=== PATIENT | male | born 1980 | race Caucasian/White ===

== ENCOUNTER 2024-08-14 18:55 | Observation (INO) | payer OTHER ==
--- OUTSIDE RECORDS SUMMARY | 2024-08-14 18:59 | XMS REPORT | Continuity of Care Document ---
Author Name Unknown Address [address] [place] [address]. [address] [place], [place] [id number] [place], [place] [address] [address] [facility] [address] [place] [address] Care Team Providers Care Accounts Adjustable Clerk Name Role Phone FREDIS PRICE Attending Clinician Unavailable ELDER GARCIA Attending Clinician Unavailable SAGRARIO COPE Attending Clinician Unavailable REA VEGA Attending Clinician Unavailable HERI RACHEL Attending Clinician Unavailable [id number] Attending Clinician Unavailable MELIA PETERS Attending Clinician Unavailable Only, Adc Test Attending Clinician Unavailable Tao Rodriguez MD Attending Clinician [phone] TAO RODRIGUEZ Attending Clinician Unavailabl e Doctor Unassigned, [place] Attending Clinician U navailable Payers Payer Name Policy Type Policy Number Effective Date Expirati on Date Source [facility] SARAH RAMAN COPAY FOCUS 9 [id number] 2024 00:00:00 PK GRANTIVELISSEBridget FROM [facility] [id number] 2019 00:00:00 Problems Condition Name Condition Details Condition Category Status Onset Date Resolution Date Last Treatment Date Treating Clinician Comments Source 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) Disease Active 2016-03 00:00: 00 Bridgette Harmon 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 2016-03 00:00: 00 Bridgette puri EDUARDO (obstructi ve sleep apnea) EDUARDO (obstructi ve sleep apnea) Disease Active 2016-03 00:00: 00 Bridgette puri Chronic left shoulder pain Chronic left shoulder pain Disease Active 2016-03 00:00: 00 Bridgette puri Obesity (BMI 30.0-34.9) Obesity (BMI 30.0-34.9) Disease Active Bridgette puri Allergies, Adverse Reactions, Alerts Allergy Name Allergy Type Status Severity Reaction(s) Onset Date Inactive Date Treating Clinician Comments Source NO KNOWN ALLERGIE S Drug Class Active [facility] Social History Social Habit Start Date Stop Date Quantity Comments Source Sexual orientation Reji uri [place] - External History of tobacco use Cigarette Smoker Bridgette Harmon External Tobacco use and exposure 2023-09-01 00:00:00 2023-09-01 00:00:00 Smokeless tobacco non-user Bridgette Hills - External Alcoholic beverage intake 2023-09-01 00:00:00 2023-09-01 00:00:00 Current drinker of alcohol (finding) Bridgette [place] - External History of Social function 2023-09-01 00:00:00 2023-09-01 00:00:00 Bridgette Hills - External Alcohol Comment 2017-03-03 00:00:00 2017-03-03 00:00:00 Rarely Bridgette [place] - External Sex assigned at 1980 00:00:00 1980 00:00:00 Bridgette Hills - External Smoking Status Start Date Stop Date Source Unknown if ever smoked [facility] Occasional tobacco smoker 2023-09-01 00:00:00 Bridgette Pastrana Medications Ordered Medication Name Filled Medication Name Start Date Stop Date Current Medication? Ordering Clinician Indication Dosage Frequency Signature (SIG) Comments Components Source Sildenafil Citrate 25 MG oral Tablet 08-31 10:48: 36 08-31 00:00 :00 No 25mg QD Take 1 tablet (25 mg total) by mouth daily as needed for erectile dysfunctio nPatricia puri Pantoprazol e Sodium 40 MG oral Pack 08-31 10:48: 36 08-31 00:00 :00 No 1{packe t} Take 1 packet by mouth daily. Bridgette puri Dapaglifloz in Propanediol (Farxiga) 10 MG oral Tablet 08-31 10:48: 36 08-31 00:00 :00 No 1{tbl} Take 1 tablet by mouth daily. Bridgette puri Diclofenac Sodium 75 MG oral Tablet Delayed Response 08-31 10:48: 36 08-31 00:00 :00 No 75mg Take 1 tablet (75 mg total) by mouth 2 times daily. Bridgette puri metFORMIN HCl ER 500 MG/5ML oral Suspension Reconstitut ed ER 08-31 10:48: 36 08-31 00:00 :00 No 1{tbl} Take 1 tablet by mouth daily. Bridgette puri hydroCHLORO thiazide 25 MG oral Tablet 08-31 10:48: 36 08-31 00:00 :00 No 25mg Take 1 tablet (25 mg total) by mouth daily. Bridgette puri Fenofibrate 160 MG oral Tablet 08-31 10:48: 36 08-31 00:00 :00 No 160mg Take 1 tablet (160 mg total) by mouth daily. Bridgette puri Albuterol HFA 108 (90 Base) MCG/ACT IN AERS 08-31 10:48: 36 08-31 00:00 :00 No 2{puff} Q.25D Inhale 2 puffs into the lungs every 6 hours as needed for wheezing. Bridgette puri Ergocalcife rol (VITAMIN D2 OR) 08-31 10:22: 45 Yes [id number] Take by mouth. Bridgette puri Dapaglifloz in Propanediol (Farxiga) 10 MG oral Tablet 08-31 00:00: 00 Yes [id number] 1{tbl} Take 1 tablet by mouth daily. Bridgette puri Albuterol HFA 108 (90 Base) MCG/ACT IN AERS 08-31 00:00: 00 Yes [id number] 2{puff} Q.25D Inhale 2 puffs into the lungs every 6 hours as needed for wheezing. Bridgette puri Metoprolol Tartrate (LOPRESSOR) 25 MG oral Tablet 08-31 00:00: 00 Yes [id number] 25mg Take 1 tablet (25 mg total) by mouth 2 times daily. Bridgette puri FLUTICASONE PROPIONATE, NASAL, (Flonase) 50 MCG/ACT nasal Suspension 08-31 00:00: 00 Yes [id number] 100ug Use 2 sprays (100 mcg total) in each nostril daily. Bridgette puri Fenofibrate 160 MG oral Tablet 08-31 00:00: 00 11-30 04:59 :00 No [id number] 160mg Take 1 tablet (160 mg total) by mouth daily. Bridgette puri hydroCHLORO thiazide 25 MG oral Tablet 08-31 00:00: 00 11-30 04:59 :00 No [id number] 25mg Take 1 tablet (25 mg total) by mouth daily. Bridgette puri metFORMIN HCl ER 500 MG/5ML oral Suspension Reconstitut ed ER 08-31 00:00: 00 11-30 04:59 :00 No [id number] 1{tbl} Take 1 tablet by mouth daily. Bridgette puri Pantoprazol e Sodium 40 MG oral Pack 08-31 00:00: 00 11-30 04:59 :00 No [id number] 1{packe t} Take 1 packet by mouth daily. Bridgette puri Sildenafil Citrate 25 MG oral Tablet 08-31 00:00: 00 11-30 04:59 :00 No [id number] 25mg QD Take 1 tablet (25 mg total) by mouth daily as needed for erectile dysfunctio n. Bridgette puri Gabapentin 100 MG oral Capsule 08-31 00:00: 00 11-30 04:59 :00 No [id number] 100mg Take 1 capsule (100 mg total) by mouth 3 times daily. Bridgette puri Diclofenac Sodium 75 MG oral Tablet Delayed Response 08-31 00:00: 00 10-01 04:59 :00 No [id number] 75mg Take 1 tablet (75 mg total) by mouth 2 times daily. Bridgette puri FLUTICASONE PROPIONATE, NASAL, (FLONASE) 50 MCG/ACT nasal Suspension 2016-03 00:00: 00 08-31 00:00 :00 No 2{spray } Use 2 sprays in each nostril daily Bridgette puri Metoprolol Tartrate 25 MG oral Tab 2016-03 00:00: 00 08-31 00:00 :00 No 25mg Take 1 tablet by mouth 2 times daily Bridgette puri Immunizations Ordered Immunization Name Filled Immunization Name Date Status Comments Source Influenza Virus Vaccine, age 6 months and up Unknown Completed Bridgette Pastrana Tdap- (Boostrix, Adacel) Unknown Completed Bridgette Pastrana COVID-19 Vaccine([employer] Mobile)(fall 2022)(12yrs+) Unknown Completed Bridgette [place] - Zeina Vital Signs Vital Name Observation Time Observation Value Comments S ource Systolic blood pressure 2023-09-01 15:23:00 108 mm[Hg] Bridgette Green ld - External Diastolic blood pressure 2023-09-01 15:23:00 68 mm[Hg] Bridgette garcia - External Heart rate 2023-09-01 15:23:00 95 /min Kat Hills - External Body temperature 2023-09-01 15:23:00 36.11 Aliya Bridgette [place] - External Respiratory rate 2023-09-01 15:23:00 18 /min Bridgette [place] - External Body height 2023-09-01 15:23:00 182.9 cm Aarti Hills - External Body weight 2023-09-01 15:23:00 98.34 kg Aarti ey Seybold - External BMI 2023-09-01 15:23:00 29.40 kg/m2 Aarti ey Seybold - External Oxygen saturation in Arterial blood by Pulse oximetry 2023-09-01 15:23:00 98 /min Bridgette Green ld - External Procedures Procedure Date / Time Performed Performing Clinicia n Source NOTICE OF PRIVACY PRACTICES 2020-01-27 20:36:13 Doctor Unassigned, [place] [facility] CONSENT/REFUSAL FOR DIAGNOSIS AND TREATMENT 2020-01-27 20:35:59 Doctor Unassigned, [place] [facility] Encounters Start Date/Time End Date/Time Encounter Type Admission Type Attending [facility] Care Department Encounter ID Source 2024-06-12 00:00:00 2024-06-12 00:00:00 Outpatient FREDIS PRICE [id number] [facility] 2024-06-02 00:00:00 2024-06-02 00:00:00 Outpatient FREDIS PRICE [id number] [facility] 2024-05-08 00:00:00 2024-05-08 00:00:00 Outpatient ELDER GARCIA [id number] [facility] 2024-02-12 00:00:00 2024-02-12 00:00:00 Outpatient FREDIS PRICE [id number] [facility] 2024-02-12 00:00:00 2024-02-12 00:00:00 Outpatient FREDIS PRICE [id number] [facility] 2023-12-13 00:00:00 2023-12-13 00:00:00 Outpatient FREDIS PRICE [id number] [facility] 2023-12-05 00:00:00 2023-12-05 00:00:00 Outpatient FREDIS PRICE [id number] [facility] 2023-12-04 00:00:00 2023-12-04 00:00:00 Outpatient FREDIS PRICE [id number] [facility] 2023-11-30 00:00:2023-11-30 00:00:00 Outpatient ELDER GARCIA [facility]GETTE MARTÍNEZ [id number] [facility] 2023-11-29 00:00:00 2023-11-29 00:00:00 Outpatient ALBERTFREDIS BRIDGETTE MARTÍNEZ [id number] [facility] 2023-10-26 00:00:00 2023-10-26 00:00:00 Outpatient ELDER GARCIA [facility] [id number] [facility]23[facility] 08:00:00 2023-09-15 08:00:00 Outpatient SAGRARIO COPE [facility] [id number] [facility]23-09-14 00:00:00 2023-09-14 00:00:00 Outpatient [facility] [id number] [facility] 2023-09-05 10:03:00 2023-09-05 10:03:00 Outpatient SAGRARIO COPE BR[facility]GETTE MARTÍNEZ [id number] [facility] 2023-09-05 00:00:00 2023-09-05 00:00:00 Outpatient SAGRARIO COPE BRIDGETTE MARTÍNEZ [id number] [facility] 2023-09-05 00:00:00 2023-09-05 00:00:00 Outpatient ALBERTDOREENFLORY MARTÍNEZ [id number] [facility] 2023-09-04 11:20:00 2023-09-04 11:20:00 Outpatient REA VEGA [id number] [facility] 2023-09-04 00:00:00 2023-09-04 00:00:00 Outpatient REA VEGA [id number] [facility] 2023-[facility]-04 00:00:00 2023-09-04 00:00:00 Outpatient FREDIS PRICE [id number] [facility] 2023-09-04 00:00:00 2023-09-04 00:00:00 [id number] [facility]23-09-04 00:00:2023-09-04 00:00:00 Outpatient HERI RACHEL [id number] [facility] 2023-09-01 11:20:00 2023-09-01 11:20:00 Outpatient JORDON MARTÍNEZ [id number] [facility] 2023-09-01 11:00:00 2023-09-01 11:00:00 Outpatient BRIDGETTE MARTÍNEZ [id number] [facility] 2023-09-01 10:30:00 2023-09-01 10:30:00 Outpatient FREDIS PRICE [id number] [facility] 2023-09-01 00:00:00 2023-09-01 00:00:00 Outpatient FREDIS PRICE BRIDGETTE BRIDGETTE [id number] [facility] 2020-06-12 14:25:00 2020-06-12 14:25:00 Outpatient MELIA PETESR [facility] [id number] [facility] 2020-05-22 12:50:00 2020-05-22 12:50:00 Outpatient [facility] [id number] [facility] 2020-01-27 14:41:09 2020-01-27 14:56:09 Laboratory Only Only, Adc Prieto LyleTao jacobson [facility] 1..[id number] [facility] 2020-01-27 14:30:00 2020-01-27 14:30:00 Outpatient Bridget PINEDATAO BAE [facility] [id number] [facility] 2020-01-27 00:00:00 2020-01-27 00:00:00 Orders Only Doctor Unassigned, [place] [facility] 1..[id number] [facility] Notes Date/Time Note Provider Source 2023-09-01 10:18:44 Chief Complaint Patient presents with Physical Patient is fasting. [place] Garcia, NEUROPSYCHOLOGY SERVICE DIRECTOR I T [facility]
[2024-08-14] MEDS ORDERED: ASPIRIN 81 MG CHEWABLE TABLET ONE (19:59)
[2024-08-14 20:02] LABS: Absolute Basophils 0.1 K/uL (0-0.5); Absolute Eosinophils 0.3 K/uL (0-0.5); Absolute Lymphocytes (CBC) 2.7 K/uL (0.7-4.9); Absolute Monocytes 0.7 K/uL (0.1-1.3); Absolute Neutrophil 3.7 K/uL (1.8-8.0); Basophils % 1.1 % (0-1.3); Eosinophils % 3.4 % (0-4.4); Hemoglobin 17.3 g/dL (13.6-17.9); MCH 30.7 pg (27.0-35.0); MCHC 35.3 g/dL (32.0-36.0); MCV 86.8 fL (80-100); MPV 7.9 fL (7.6-11.3); Monocytes % 9.2 % (3.3-12.3); Neutrophils % 49.3 % (41.7-73.7); Nucleated RBC Absolute Count 0.1 (0-0); Platelets 230 thou/uL (152-406); RBC Red Blood Cell Count 5.64 M/uL (4.33-5.43); Red Cell Distribution Width 12.5 % (12.1-15.2)
--- NOTE | 2024-08-14 20:31 | RAD REPORT ---
EXAM: Chest Single View HISTORY: 43 years Male CHEST PAIN COMPARISON: None. FINDINGS: LUNGS/PLEURA: .No pleural effusions or pneumothorax. No pulmonary edema. Pulmonary vascular congestio n. Calcified right lower lobe nodule. CARDIAC/MEDIASTINUM: The cardiac silhouette is within normal limits. UPPER ABDOMEN: No significant abnormality. BONES: No acute abnormality. LINES/TUBES/OTHER: N/A IMPRESSION: No evidence of acute cardiopulmonary disease.
[2024-08-14 20:36] LABS: Bilirubin Direct 0.2 mg/dL (0-0.2); Bilirubin Indirect, Calculated 0.6 mg/dL (0.2-0.8); Bilirubin Total 0.8 mg/dL (0.2-1.0); Globulin 3.9 g/dL (2.3-3.5); Protein, Total 7.9 g/dL (6.4-8.2); Troponin High Sensitivity 37.2 pg/mL (<58.9)
[2024-08-14 20:40] LABS: Magnesium 1.9 mg/dL (1.6-2.4)
--- NOTE | 2024-08-14 21:16 | EDPHYS ---
Physician Documentation [facility] Name: Kareem Laughlin Age: 43 yrs Sex: Male : 1980 Arrival Date: 08/14/2024 Time: 18:55 Bed 5 Private MD: ED Physician Pacheco Adams HPI: 08/14 21:04 This 43 yrs old Male presents to ER via Ambulatory with complaints of Chest Pain. kb 21:04 Pt is a 43 year old male who presents for chest pain to left chest that radiates down kb left arm and stops at the elbow. 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 Denies shortness of breath, nausea, vomiting. . Historical: - Allergies: 19:10 No Known Allergies; ap3 - PMHx: 19:10 Palpitations; hole in heart; ap3 - Immunization history:: Client reports having NOT received the Covid vaccine. Flu vaccine is not up to date. - Infectious Disease History:: Denies. - Social history:: Smoking status: Reported history of juuling and/or vaping. ROS: 20:30 Constitutional: As per HPI kb Exam: 20:30 Constitutional: This is a well developed, well nourished patient who is awake, alert, kb and in no acute distress. Head/Face: Normocephalic, atraumatic. ENT: Moist Mucous membranes Respiratory: Respirations even and unlabored. No increased work of breathing. Talking in full sentences Abdomen/GI: Soft, non-tender. No distention Skin: Warm, dry with normal turgor. Normal color. MS/ Extremity: Pulses equal, no cyanosis. Neurovascular intact. Full, normal range of motion. Neuro: Awake and alert, GCS 15, oriented to person, place, time, and situation. 20:30 Cardiovascular: Rate: normal, Rhythm: irregularly irregular, Heart sounds: murmur, 20:30 ECG was reviewed by the Attending Physician. Vital Signs: 19:08 BP 131 / 83; Pulse 91; Resp 18; Temp 98.8; Pulse Ox 97% on R/A; Weight 111.13 kg; Pain ap3 4/10; 20:15 BP 129 / 71; Pulse 95; Resp 16; Pulse Ox 96% on R/A; jb4 21:30 BP 109 / 73; Pulse 95; Resp 16; Pulse Ox 97% on R/A; jb4 22:30 BP 122 / 78; Pulse 85; Resp 16; Pulse Ox 97% on R/A; jb4 23:30 BP 113 / 92; Pulse 84; Resp 15; Pulse Ox 98% on R/A; jb4 19:08 Pain Scale: Adult ap3 MDM: 19:19 Medical Screening Exam initiated kb 21:03 Differential diagnosis: acute mi, arrhythmia, abnormal electrolytes. Data reviewed: vital signs, nurses notes. Consideration of Admission/Observation Patient was admitted/placed on observation. Escalation of care including admission/observation considered. Management of patient was discussed with the following: Plow Holder: Dr Isaac. Counseling: I had a detailed discussion with the patient and/or guardian regarding the historical points, exam findings, and any diagnostic results supporting the discharge/admit diagnosis, lab results, radiology results, the need for further work-up and treatment in the hospital. 21:14 Management of patient was discussed with the following: Hospitalist: Edvin accepts pt kb for admission under Dr Montero. 08/14 19:20 Order name: Basic Metabolic Panel; Complete Time: 20:45 kb 08/14 19:20 Order name: CBC with Diff; Complete Time: 20:29 kb 08/14 19:20 Order name: LFT's; Complete Time: 20:45 kb 08/14 19:20 Order name: Magnesium; Complete Time: 20:45 kb 08/14 19:20 Order name: NT PRO-BNP; Complete Time: 20:45 kb 08/14 19:20 Order name: Troponin HS; Complete Time: 20:45 kb 08/15 00:09 Order name: Basic Metabolic Panel EDME 08/15 00:09 Order name: Basic Metabolic Panel EDME 08/15 00:09 Order name: CBC with Automated Diff EDMS 08/15 00:09 Order name: CBC with Automated Diff EDMS 08/15 00:09 Order name: Troponin High Sensitivity EDMS 08/15 00:09 Order name: Troponin High Sensitivity EDMS 08/15 00:09 Order name: Troponin High Sensitivity EDMS 08/15 00:09 Order name: Troponin High Sensitivity EDME 08/14 19:20 Order name: XRAY Chest (1 view); Complete Time: 20:34 kb 08/15 00:09 Order name: Echo with Doppler EDMS 08/15 00:09 Order name: EKG Electrocardiogram EDME 08/15 00:09 Order name: EKG Electrocardiogram EDME 08/15 00:09 Order name: EKG Electrocardiogram EDME 08/15 00:09 Order name: EKG Electrocardiogram EDME 08/14 19:20 Order name: Cardiac monitoring; Complete Time: 19:54 kb 08/14 19:20 Order name: EKG - Nurse/Tech; Complete Time: 19:54 kb 08/14 19:20 Order name: IV Saline Lock; Complete Time: 19:54 kb 08/14 19:20 Order name: Labs collected and sent; Complete Time: 19:54 kb 08/14 19:20 Order name: O2 Per Protocol; Complete Time: 19:54 kb 08/14 19:20 Order name: O2 Sat Monitoring; Complete Time: 19:54 kb EC:30 Rate is 95 beats/min. Rhythm is irregularly irregular. QRS [place] is Normal. QRS interval kb is normal at 146 msec. QT interval is normal at 472 msec. 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 Disposition Summary: 08/14/24 21:15 Hospitalization Ordered Notes: Hospitalization Status: Observation kb Provider: Shoaib Montero Location: Telemetry/MedSurg (observation) kb Condition: Stable kb Problem: new kb Symptoms: are unchanged kb Bed/Room Type: Standard Room Assignment: 228(08/15/24 00:11) rv1 Diagnosis - Chest pain, unspecified kb - Unspecified atrial fibrillation kb Forms: - Medication Reconciliation Form kb - SBAR form kb - Leadership Thank You Letter kb Signatures: Dispatcher [employer] [facility] Margo Sprague, PARISC EMANUEL-Pacheco Montoya MD MD cha Bryson, James, RN RN jb4 Klarissa Vincent RN RN ap3 Jennifer Thompson rv1 Corrections: (The following items were deleted from the chart) 08/14 19:20 19:20 BASIC METABOLIC PANEL+C.LAB.BRZ ordered. EDMS EDMS 19:20 19:20 CBC+H.LAB.BRZ ordered. EDMS EDMS 19:20 19:20 HEPATIC FUNCTION+C.LAB.BRZ ordered. EDMS EDMS 19:20 19:20 MAGNESIUM+C.LAB.BRZ ordered. EDMS EDMS 19:20 19:20 PROBNP+C.LAB.BRZ ordered. EDMS EDMS 19:20 19:20 Troponin High Sensitivity+C.LAB.BRZ ordered. EDMS EDMS 08/15 00:11 08/14 21:15 kb rv1 08/15 00: 00:09 Troponin High Sensitivity ordered. EDMS EDMS
--- NOTE | 2024-08-14 21:16 | ER ---
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 patient rates his pain currently as a 4/10 on the pain scale. Coronavirus screen: At this time, the client does not indicate any symptoms associated with coronavirus-19. Ebola Screen: No symptoms or risks identified at this time. Initial Sepsis Screen: Does the patient meet any 2 criteria? HR > 90 bpm. Does the patient have a suspected source of infection? No. Patient's initial sepsis screen is negative. Risk Assessment: Do you want to hurt yourself or someone else? Patient reports no desire to harm self or others. Onset of symptoms was August 14, 2024. 19:08 Method Of Arrival: Ambulatory ap3 19:08 Acuity: KEE 2 ap3 Triage Assessment: 19:10 General: Appears in no apparent distress. Behavior is calm, cooperative, appropriate ap3 for age. Pain: Complains of pain in chest Pain radiates to left arm Pain currently is 4 out of 10 on a pain scale. Neuro: Level of Consciousness is awake, alert, obeys commands, Oriented to person, place, time, situation, Appropriate for age. Cardiovascular: Reports chest pain. Respiratory: Airway is patent Respiratory effort is even, unlabored, Respiratory pattern is regular, symmetrical. Historical: - Allergies: 19:10 No Known Allergies; ap3 - PMHx: 19:10 Palpitations; hole in heart; ap3 - Immunization history:: Client reports having NOT received the Covid vaccine. Flu vaccine is not up to date. - Infectious Disease History:: Denies. - Social history:: Smoking status: Reported history of juuling and/or vaping. Screenin:11 [facility] ED Fall Risk Assessment (Adult) History of falling in the last 3 months, ap3 including since admission No falls in past 3 months (0 pts) Confusion or Disorientation No (0 pts) Intoxicated or Sedated No (0 pts) Impaired Gait No (0 pts) Mobility Assist Device Used No (0 pt) Altered Elimination No (0 pt) Score/Fall Risk Level 0 - 2 = Low Risk Oriented to surroundings, Maintained a safe environment, Educated pt \T\ family on fall prevention, incl call for assistance when getting out of bed, Assessed \T\ reinforced patient's understanding of fall precautions, Hourly rounding (assess needs \T\ fall precautionary measures) done, Used ambulatory aids as needed (educated on \T\ assisted with). Abuse screen: Denies threats or abuse. Nutritional screening: No deficits noted. Tuberculosis screening: No symptoms or risk factors identified. Assessment: 20:00 Reassessment: Patient appears in no apparent distress at this time. Patient and/or jb4 family updated on plan of care and expected duration. Pain level reassessed. Patient is alert, oriented x 3, equal unlabored respirations, skin warm/dry/pink. 21:00 Reassessment: Patient appears in no apparent distress at this time. Patient and/or jb4 family updated on plan of care and expected duration. Pain level reassessed. Patient is alert, oriented x 3, equal unlabored respirations, skin warm/dry/pink. 22:00 Reassessment: Patient appears in no apparent distress at this time. Patient and/or jb4 family updated on plan of care and expected duration. Pain level reassessed. Patient is alert, oriented x 3, equal unlabored respirations, skin warm/dry/pink. 23:00 Reassessment: Patient appears in no apparent distress at this time. Patient and/or jb4 family updated on plan of care and expected duration. Pain level reassessed. Patient is alert, oriented x 3, equal unlabored respirations, skin warm/dry/pink. 08/15 00:00 Reassessment: Patient appears in no apparent distress at this time. Patient and/or jb4 family updated on plan of care and expected duration. Pain level reassessed. Patient is alert, oriented x 3, equal unlabored respirations, skin warm/dry/pink. Vital Signs: 08/14 19:08 BP 131 / 83; Pulse 91; Resp 18; Temp 98.8; Pulse Ox 97% on R/A; Weight 111.13 kg; Pain ap3 4/10; 20:15 BP 129 / 71; Pulse 95; Resp 16; Pulse Ox 96% on R/A; jb4 21:30 BP 109 / 73; Pulse 95; Resp 16; Pulse Ox 97% on R/A; jb4 22:30 BP 122 / 78; Pulse 85; Resp 16; Pulse Ox 97% on R/A; jb4 23:30 BP 113 / 92; Pulse 84; Resp 15; Pulse Ox 98% on R/A; jb4 19:08 Pain Scale: Adult ap3 ED Course: 18:58 Patient arrived in ED. im 19:10 Triage completed. ap3 19:11 Arm band placed on right wrist. ap3 19:11 Patient has correct armband on for positive identification. Placed in gown. Bed in low ap3 position. Call light in reach. Side rails up X 1. Client placed on continuous cardiac and pulse oximetry monitoring. NIBP monitoring applied. monitoring manager on. Pulse ox on. NIBP on. 19:11 Patient maintains SpO2 saturation greater than 95% on room air. ap3 19:11 EKG done, by ED staff, reviewed by Pacheco Adams MD. ap3 19:19 Margo Sprague, EMANUEL-C is PHCP. kb 19:19 Pacheco Adams MD is Attending Physician. kb 19:54 Troponin HS Sent. jb4 19:54 NT PRO-BNP Sent. jb4 19:54 Magnesium Sent. jb4 19:54 LFT's Sent. jb4 19:54 Basic Metabolic Panel Sent. jb4 19:54 CBC with Diff Sent. jb4 20:19 XRAY Chest (1 view) In Process Unspecified. EDMS 20:19 Milena Hooper, RN is Primary Nurse. jr13 21:15 Shoaib Montero MD is Hospitalizing Provider. kb 08/15 01:14 No provider procedures requiring assistance completed. Patient admitted, IV remains in vc1 place. 01:15 Provided Education on: Need for admit. 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 vc1 Outcome: 08/14 21:15 Decision to Hospitalize by Provider. 08/15 01:14 Admitted to Med/surg accompanied by tech, via wheelchair, room 228, vc1 Condition: stable Instructed on the need for admit, 01:15 Patient left the ED. vc1 Signatures: Dispatcher [employer] EDMargo Lind, SENIOR ANALYST DEVELOPER-C SENIOR ANALYST DEVELOPER-Jose Glaser, RN RN jb4 Klarissa Vincent RN RN ap3 Mary Jo Bartlett RN RN vc1 Gladys Clemons Jamike, RN RN jr13
[2024-08-14] MEDS ORDERED: ENOXAPARIN 40 MG/0.4 ML SQ ONE (22:18)
[2024-08-15] MEDS ORDERED: MORPHINE 4 MG/ML SYR IV PRN (00:04)
[2024-08-15] MEDS ORDERED: NITROGLYCERIN 0.4 MG/TAB SL PRN (00:04)
--- NOTE | 2024-08-15 00:08 | P.HP ---
Certification for Inpatient Patient admitted to: Observation With expected LOS: >2 Midnights Patient will require the following post-hospital care: None Practitioner: I am a practitioner with admitting privileges, knowledge of patient current condition, hospital course, and medical plan of care. Services: Services provided to patient in accordance with Admission requirements found in Title 42 Section 412.3 of the Code of Federal Regulations Patient History Date of Service: 08/15/24 Reason for admission: Chest pain History of Present Illness: Patient is a pleasant 43-year-old male with past medical history of congenital heart defect of unknown type by the patient, aortic heart murmur, hyperlipidemia, chronic right shoulder pain, type 2 diabetes mellitus, hypertension, who reports to the ER today due to chest pain. Patient states around 6:30 PM he developed left-sided chest pain that radiates down to his arm and elbow. Patient describes the chest pain as intermittent. But denies any associated shortness of breath. Patient states he has never had such a previous chest pain. While in the ER, patient was atrial fibrillation controlled rate. When inquired from the patient if he has history of prior atrial fibrillation, patient states not that he is aware of. Will assume at this time that the patient atrial fibrillation is a new onset. Report received from ER. , states he contacted supreme court judge Dr. Isaac and spoke to him about the patient. Allergies No Known Allergies Allergy (Unverified 08/14/24 23:27) Home Medications: Diclofenac Na [Voltaren D.R] 75 mg PO DAILY 08/15/24 Ergocalciferol (Vitamin D2) [Vitamin D2] 50,000 unit WMP 08/15/24 Fenofibrate [Tricor*] 160 mg DAILY 08/15/24 Gabapentin 100 mg TID 08/15/24 Hydrochlorothiazide 25 mg DAILY 08/15/24 Metformin ER [Glucophage ER*] 500 mg BID 08/15/24 Metoprolol Tartrate 25 mg BID 08/15/24 - Past Medical/Surgical History Has patient received pneumonia vaccine in the past: No Diabetic: Yes -: Hyperlipidemia. -: Type 2 diabetes mellitus. -: Chronic left shoulder pain. -: Essential hypertension. -: Removal of lip cyst. - Family History Family History: Reviewed- Non-Contributory - Social History Smoking Status: Current every day smoker (Vapes currently.) Smoking therapy provided: Yes (Declined) Patient receptive to therapy: No Alcohol use: Yes CD- Drugs: No Caffeine use: No Place of Residence: Home Review of Systems 10-point ROS is otherwise unremarkable Cardiovascular: Chest Pain Physical Examination - Physical Exam General: Alert, In no apparent distress, Oriented x3, Cooperative HEENT: Atraumatic, Normocephalic, PERRLA, Mucous membr. moist/pink, Sclerae nonicteric Neck: Supple, 2+ carotid pulse no bruit, No Thyromegaly, No LAD, Without JVD or thyroid abnormality Respiratory: Clear to auscultation bilaterally, Normal air movement Cardiovascular: No edema, Normal pulses, Regular rate/rhythm, Normal S1 S2, No gallops, No rubs, No murmurs Capillary refill: <2 Seconds Gastrointestinal: Normal bowel sounds, Soft and benign, Non-distended, W/out hepatomegaly, No ascites, No tenderness, No masses, No rebound, No guarding Musculoskeletal: No clubbing, No swelling, No contractures, No erythema, No tenderness, No warmth Integumentary: No rashes, No breakdown, No tenderness/swelling, No erythema, No warmth, No cyanosis Neurological: Normal gait, Normal speech, Normal strength at 5/5 x4 extr, Normal tone, Sensation intact, Cranial nerves 3-12 intact, Normal reflexes 2+, Normal affect Lymphatics: No axilla or inguinal lymphadenopathy - Studies Laboratory Data (last 24 hrs) 08/14/24 08/14/24 19:54 19:54 WBC 7.40 Hgb 17.3 Hct 49.0 Plt Count 230 Sodium 135 L Potassium 4.0 BUN 16 Creatinine 1.25 Glucose 351 H Magnesium 1.9 Total Bilirubin 0.8 AST 33 ALT 51 Alkaline Phosphatase 74 Male Exam - Male Exam Inguinal exam: No hernias Testicular exam: Non-tender Assessment and Plan - Plan Patient is a pleasant 43-year-old male who reports to ER complaining of chest pain that radiates to his left arm down to his elbow patient denies any associat ed shortness of breath at this time. During admission assessment, patient states his chest pain is relieved at this time. Patient appears not to be in any acute distress at this time. Patient also had an A-fib controlled rate while in ER, when inquired from the patient he states he is not aware if he had a prior A-fib before. At this point will assume patient A-fib is new onset. (1) chest pain. - Initiated chest pain protocol, including nitro 0.4 mg sublingual Q 5 minutes x 3, morphine 4 mg IVP Q4 p.r.n. -Telemetry. -Cardiology consult. -Order echocardiogram. (2) chronic type 2 diabetes mellitus. -Continue home medication metformin 500 mg p.o. twice daily. (3) chronic hyperlipidemia. -Continue home medication fenofibrate 160 mg p.o. daily. (4) chronic hypertension. - Continue home medication metoprolol 25 mg p.o. twice daily. (5)New onset atrial fibrillation with controlled rate. -Telemetry. Will manage anticoag at this time with Lovenox 40 subcu daily, but if patient atrial fibrillation continues on discharge, he may need to be transition to DOAC. (6)Explained the entire treatment plan to the patient, solicit questions answered and voiced understanding. Discharge Plan: Home Plan to discharge in: 48 Hours - Advance Directives Does patient have a Living Will: No Does patient have a Durable POA for Healthcare: No - Code Status/Comfort Care Code Status Assessed: Yes Code Status: Full Code Critical Care: No Time Spent Managing Pts Care (In Minutes): 55
[2024-08-15 01:10] VITALS: BMI 34.2
[2024-08-15 05:42] VITALS: O2SAT 98
[2024-08-15] MEDS: INSULIN REGULAR (HUMAN) 100 UNIT/ML SQ SCH (07:30)
[2024-08-15] MEDS: ENOXAPARIN 40 MG/0.4 ML SQ SCH (09:00)
[2024-08-15] MEDS: METOPROLOL TAR 25 MG TAB PO SCH ×2 (09:00→09:53)
[2024-08-15] MEDS: FENOFIBRATE 160 MG TAB PO SCH (09:00)
[2024-08-15] MEDS: ASPIRIN EC 81 MG TAB PO SCH (09:00)
[2024-08-15] MEDS: GABAPENTIN 100 MG CAP PO SCH ×2 (09:00)
[2024-08-15 09:24] VITALS: BP 135/80; TEMP 97.9
[2024-08-15] MEDS: hydroCHLOROthiazide 25 MG TAB PO SCH (09:53)
--- NOTE | 2024-08-15 10:53 | P.DS ---
Admission Date: 08/14/24 Discharge Date: 08/15/24 Disposition: ROUTINE DISCHARGE Discharge Condition: FAIR Reason for Admission: Chest pain Brief History of Present Illness: 43-year-old male with past medical history of congenital heart defect of unknown type, aortic heart murmur, hyperlipidemia, chronic right shoulder pain, type 2 diabetes mellitus, hypertension, presented to the ER today due to chest pain. While in the ER, patient was noted to be in atrial fibrillation controlled rate. Patient denied any prior history of atrial fibrillation. Initial troponin negative. Patient was hospitalized for further management. Hospital Course: Diagnosis. Atrial fibrillation Chest pain Diabetes mellitus type 2 Patient placed under observation on the medical floor. Troponin trended negative, echocardiogram was done and result is pending. Patient was asymptomatic during the hospital stay, no more chest pain. He denies shortness of breath. 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 Patient evaluated by cardiology Dr. Isaac. He requested to go home today to take care of his disabled and daughter. Cardiology recommended further outpatient workup for the atrial fibrillation. Patient is on metoprolol which is continued on discharge. Cardiology recommended aspirin which is prescribed. Vital Signs/Physical Exam: Temp Pulse Resp BP Pulse Ox 97.9 F 81 18 135/80 98 08/15/24 08:00 08/15/24 08:00 08/15/24 08:00 08/15/24 08:00 08/15/24 08:00 General: Alert, In no apparent distress, Oriented x3 HEENT: Mucous membr. moist/pink, Sclerae nonicteric Neck: Supple, JVD not distended Respiratory: Clear to auscultation bilaterally, Normal air movement Cardiovascular: No edema, Normal S1 S2, Irregular heart rate/rhythm Gastrointestinal: Normal bowel sounds, Soft and benign, Non-distended, No tenderness Musculoskeletal: No swelling Integumentary: No rashes, No cyanosis Neurological: Normal speech, Normal strength at 5/5 x4 extr, Cranial nerves 3-12 intact Laboratory Data at Discharge: WBC 7.40 thou/uL (4.3-10.9) 08/14/24 19:54 Hgb 17.3 g/dL (13.6-17.9) 08/14/24 19:54 Hct 49.0 % (39.6-49.0) 08/14/24 19:54 Plt Count 230 thou/uL (152-406) 08/14/24 19:54 Sodium 135 mEq/L (136-145) L 08/14/24 19:54 Potassium 4.0 mEq/L (3.5-5.1) 08/14/24 19:54 BUN 16 mg/dL (7-18) 08/14/24 19:54 Creatinine 1.25 mg/dL (0.70-1.30) 08/14/24 19:54 Glucose 351 mg/dL (74-106) H 08/14/24 19:54 Magnesium 1.9 mg/dL (1.6-2.4) 08/14/24 19:54 Total Bilirubin 0.8 mg/dL (0.2-1.0) 08/14/24 19:54 AST 33 U/L (15-37) 08/14/24 19:54 ALT 51 U/L (16-61) 08/14/24 19:54 Alkaline Phosphatase 74 U/L (45-117) 08/14/24 19:54 Home Medications: Aspirin [Aspirin EC 81 MG] 81 mg PO DAILY #30 tab 08/15/24 Diclofenac Na [Voltaren D.r*] 75 mg PO DAILY 08/15/24 Ergocalciferol (Vitamin D2) [Vitamin D2] 50,000 unit WMP 08/15/24 Fenofibrate [Tricor*] 160 mg DAILY 08/15/24 Gabapentin 100 mg TID 08/15/24 Hydrochlorothiazide 25 mg DAILY 08/15/24 Metformin ER [Glucophage ER*] 500 mg BID 08/15/24 Metoprolol Tartrate 25 mg BID 08/15/24 New Medications: Aspirin [Aspirin EC 81 MG] 81 mg PO DAILY #30 tab Diet: ADA Activity: Ad wendy Followup: Ventura Gregorio DO [Primary Care Provider] - 1-2 Weeks Time spent managing pt's care (in minutes): 33
--- NOTE | 2024-08-15 12:24 | P.CNS ---
Date of Consult: 08/15/24 Chief Complaint: Chest pain History of Present Illness: Patient with PMH of congenital heart disease, possible ASD, presented with chest pain 2 out of 10 happened yesterday, nothing today, denies palpitations, no syncope, no SOB, no BAIN. Allergies No Known Allergies Allergy (Unverified 08/14/24 23:27) Home medications list reviewed: Yes Home Medications: Aspirin [Aspirin EC 81 MG] 81 mg PO DAILY #30 tab 08/15/24 Diclofenac Na [Voltaren D.r*] 75 mg PO DAILY 08/15/24 Ergocalciferol (Vitamin D2) [Vitamin D2] 50,000 unit WMP 08/15/24 Fenofibrate [Tricor*] 160 mg DAILY 08/15/24 Gabapentin 100 mg TID 08/15/24 Hydrochlorothiazide 25 mg DAILY 08/15/24 Metformin ER [Glucophage ER*] 500 mg BID 08/15/24 Metoprolol Tartrate 25 mg BID 08/15/24 - Past Medical/Surgical History Diabetic: Yes -: Hyperlipidemia. -: Type 2 diabetes mellitus. -: Chronic left shoulder pain. -: Essential hypertension. -: Removal of lip cyst. - Social History Alcohol use: Yes CD- Drugs: No Caffeine use: No Place of Residence: Home Review of Systems 10-point ROS is otherwise unremarkable Physical Examination Temp Pulse Resp BP Pulse Ox 97.9 F 81 18 135/80 98 08/15/24 08:00 08/15/24 08:00 08/15/24 08:00 08/15/24 08:00 08/15/24 08:00 General: Alert, In no apparent distress HEENT: Atraumatic, PERRLA, Mucous membr. moist/pink, EOMI, Sclerae nonicteric Neck: Supple, 2+ carotid pulse no bruit, No LAD, Without JVD or thyroid abnormality Respiratory: Clear to auscultation bilaterally, Normal air movement Cardiovascular: Regular rate/rhythm, Normal S1 S2 Gastrointestinal: Normal bowel sounds, No tenderness Musculoskeletal: No tenderness Integumentary: No rashes Neurological: Normal gait, Normal speech, Normal tone, Normal affect Lymphatics: No axilla or inguinal lymphadenopathy Laboratory Data (last 24 hrs) 08/14/24 08/14/24 19:54 19:54 WBC 7.40 Hgb 17.3 Hct 49.0 Plt Count 230 Sodium 135 L Potassium 4.0 BUN 16 Creatinine 1.25 Glucose 351 H Magnesium 1.9 Total Bilirubin 0.8 AST 33 ALT 51 Alkaline Phosphatase 74 - Problems (1) Atrial fibrillation Current Visit: Yes Status: Acute Plan: new onset, rate controlled. continue lopressor 25 mg po BID ASA 81 mg daily outpatient follow up with cardiology for further management (2) Chest pain Current Visit: Yes Status: Acute Plan: EKG and troponin are negative. ASA 81 mg daily outpatient follow up with cardiology. (3) HTN (hypertension) Current Visit: Yes Status: Acute Plan: continue lopressor and HCTZ.
[2024-08-15] MEDS ORDERED: FENOFIBRATE 160 MG TAB PO SCH (17:00)
[2024-08-15] MEDS ORDERED: METOPROLOL TAR 25 MG TAB PO SCH ×2 (18:00)
== END 2024-08-15 12:43 | disposition home or self-care (01) ==
LOC: ER 18:55 → 2ND 23:59
PROVIDERS: ADMIT Internal Medicine; ATTEND Internal Medicine
DX: R07.9 Chest pain, unspecified (principal); I48.91 Unspecified atrial fibrillation; I35.8 Other nonrheumatic aortic valve disorders; I10 Essential (primary) hypertension; E11.9 Type 2 diabetes mellitus without complications; M25.511 Pain in right shoulder; E78.5 Hyperlipidemia, unspecified
CPT/HCPCS: 85025; 80048; 36415; 83735; 82947 ×2; 80076; 84484 ×3; 83880; 71045; J1650 ×2; G0378 ×2; 93005